=== PATIENT | male | born 1995 | race Caucasian/White ===

== ENCOUNTER 2020-04-26 04:47 | Emergency (ER) | payer OTHER ==
[~2020-04-26] VITALS: Ht 175.3 cm; Wt 86.2 kg
[2020-04-26 04:50] VITALS: BP 103/68
[2020-04-26] MEDS ORDERED: DEXAMETHASONE SOD PHOSPHATE 10 MG/ML VIAL ONE (04:57)
[2020-04-26] MEDS ORDERED: DEXAMETHASONE SOD PHOSPHATE 10 MG/ML VIAL IV ONE (05:00)
--- NOTE | 2020-04-26 05:27 | NUR ---
CAME TO ER C/O "THERE'S SOMETHING IS IN MY THROAT, IF FEELS REALLY BIG. I FEEL WORSE AND WORSE". PATIENT ADMITS TO DRINKING, MARIJUANA, AND SNORTING COCAINE. PATIENT IS AAOX4. NO SOB .BREATHING EVENLY AND UNLABORED ON ROOM AIR. NO OBJECTIVE FINDINGS OF CLOSING THROAT THROUGH ASSESSMENT.
--- NOTE | 2020-04-26 05:38 | NUR ---
Patient discharged to home in stable condition. Written and verbal after care instructions given. Patient verbalizes understanding of instruction.
== END 2020-04-26 05:38 | disposition home or self-care (01) ==
LOC: ER 04:51
DX: K12.2 Cellulitis and abscess of mouth (principal)
CPT/HCPCS: 87070; 87880; 99283; J1100; 86403-TC